=== PATIENT | male | born 1960 | race Caucasian/White ===

== ENCOUNTER 2024-11-21 13:37 | Emergency (ER) | payer MEDICARE, OTHER ==
[2024-11-21] MEDS: Sodium Chloride 0.9% 1,000 ML IV ONE (16:47)
[2024-11-21] MEDS: Pantoprazole 80 MG in Sodium Chloride 0.9% 10 ML IVPUSH ONE (16:47)
[2024-11-21] MEDS: Pantoprazole 40 MG in Sodium Chloride 0.9% 10 ML IVPUSH ONE (16:48)
[2024-11-21 16:58] LABS: BASOPHILS ABSOLUTE AUTO 0.02 K/uL (0.00-0.20); BASOPHILS PERCENT AUTO 0.5 % (0.0-1.0); EOSINOPHILS ABSOLUTE AUTO 0.19 K/uL (0.00-0.45); EOSINOPHILS PERCENT AUTO 4.7 % (0.0-6.0); HEMATOCRIT 38.4 % (42.0-52.0); HEMOGLOBIN 13.4 g/dL (14.0-18.0); IMMATURE GRAN ABSOLUTE AUTO 0.02 K/uL (0.00-0.05); IMMATURE GRAN PERCENT AUTO 0.5 % (0.0-0.4); LYMPHOCYTES ABSOLUTE AUTO 1.17 K/uL (1.00-4.80); MEAN CORPUSCULAR HEMOGLOBIN 29.9 pg (28.0-32.0); MEAN CORPUSCULAR HGB CONC 34.9 g/dL (32.0-36.0); MEAN CORPUSCULAR VOLUME 85.7 fL (83.0-99.0); MEAN PLATELET VOLUME 9.1 fL (9.4-12.4); MONOCYTES ABSOLUTE AUTO 0.61 K/uL (0.00-0.80); MONOCYTES PERCENT AUTO 15.1 % (0.0-8.0); NEUTROPHILS ABSOLUTE AUTO 2.03 K/uL (1.80-7.70); NEUTROPHILS PERCENT AUTO 50.2 % (41.0-71.0); PLATELET COUNT,PLT 255 K/uL (150-400); RED BLOOD CELL COUNT 4.48 M/uL (4.52-5.90); WHITE BLOOD CELL COUNT,WBC 4.04 K/uL (3.9-11.3)
[2024-11-21 17:19] LABS: INR 0.99 (0.86-1.11); PTT,PARTIAL THROMBOPLSTIN TIME 26.4 SEC (23.9-30.7)
[2024-11-21 17:34] LABS: ALBUMIN 3.8 g/dL (3.4-5.0); BILIRUBIN DIRECT 0.1 mg/dL (0.0-0.5); BILIRUBIN INDIRECT 0.3; BILIRUBIN TOTAL 0.4 mg/dL (0.2-1.0); CALCIUM 9.2 mg/dL (8.5-10.1); CARBON DIOXIDE,CO2 24.1 mmol/L (21.0-32.0); CREATININE 0.9 mg/dL (0.8-1.3); EST CRCL DRUG DOSING (CG) 85.99 mL/min; POTASSIUM,K 3.9 mmol/L (3.5-5.1); PROTEIN TOTAL,TP 7.6 g/dL (6.4-8.2)
[2024-11-21] MEDS: Iopamidol 755 MG/ML 500 ML Multipack Bottle IVPUSH STA (19:20)
[2024-11-21 20:44] LABS: BASOPHILS ABSOLUTE AUTO 0.03 K/uL (0.00-0.20); BASOPHILS PERCENT AUTO 0.7 % (0.0-1.0); EOSINOPHILS ABSOLUTE AUTO 0.22 K/uL (0.00-0.45); EOSINOPHILS PERCENT AUTO 5.4 % (0.0-6.0); HEMATOCRIT 40.1 % (42.0-52.0); HEMOGLOBIN 13.6 g/dL (14.0-18.0); IMMATURE GRAN ABSOLUTE AUTO 0.01 K/uL (0.00-0.05); IMMATURE GRAN PERCENT AUTO 0.2 % (0.0-0.4); LYMPHOCYTES ABSOLUTE AUTO 1.42 K/uL (1.00-4.80); LYMPHOCYTES PERCENT AUTO 34.9 % (24.0-44.0); MEAN CORPUSCULAR HEMOGLOBIN 29.4 pg (28.0-32.0); MEAN CORPUSCULAR HGB CONC 33.9 g/dL (32.0-36.0); MEAN CORPUSCULAR VOLUME 86.6 fL (83.0-99.0); MEAN PLATELET VOLUME 8.9 fL (9.4-12.4); MONOCYTES ABSOLUTE AUTO 0.52 K/uL (0.00-0.80); MONOCYTES PERCENT AUTO 12.8 % (0.0-8.0); NEUTROPHILS ABSOLUTE AUTO 1.87 K/uL (1.80-7.70); PLATELET COUNT,PLT 253 K/uL (150-400); RED BLOOD CELL COUNT 4.63 M/uL (4.52-5.90); WHITE BLOOD CELL COUNT,WBC 4.07 K/uL (3.9-11.3)
== END 2024-11-21 23:00 | disposition home or self-care (01) ==
LOC: MW.ED 13:37
DX: K92.1 Melena (principal); E78.00 Pure hypercholesterolemia, unspecified; Z79.82 Long term (current) use of aspirin; Z79.899 Other long term (current) drug therapy
CPT/HCPCS: 36415; 74177; 80048; 80076; 83690; 84484; 85025; 85610; 85730; 93005; 96361; 96374; 99285; J2470; J7030; Q9967

== ENCOUNTER 2024-12-12 08:32 | Day surgery (SDC) | payer MEDICARE, OTHER ==
[2024-12-12] MEDS: Lactated Ringers 1,000 ML IV SCH (09:00)
[2024-12-12] MEDS ORDERED: propofoL 500 MG/50 ML 50 ML ONE (09:13)
[2024-12-12] MEDS ORDERED: Sodium Chloride 0.9% 20 ML ONE (09:22)
[2024-12-12] MEDS ORDERED: dexmedeTOMIDine HCl 200 MCG/2 ML SDV ONE (10:04)
== END 2024-12-12 11:43 | disposition home or self-care (01) ==
LOC: MW.SDS 08:32
PROVIDERS: ATTEND Surgery
DX: K21.00 Gastro-esophageal reflux disease with esophagitis, without bleeding (principal); K44.9 Diaphragmatic hernia without obstruction or gangrene; K57.30 Diverticulosis of large intestine without perforation or abscess without bleeding; I10 Essential (primary) hypertension; E78.00 Pure hypercholesterolemia, unspecified; N40.0 Benign prostatic hyperplasia without lower urinary tract symptoms; Z79.899 Other long term (current) drug therapy
CPT/HCPCS: 43239; 45380; 88305; J2704; J7120; 00813; J3490